=== PATIENT | male | born 1940 | race Two or more races ===

== ENCOUNTER 2022-06-25 22:55 | Emergency (ER) | payer OTHER ==
[~2022-06-25] VITALS: Ht 177.8 cm; Wt 95.3 kg
[2022-06-25 23:44] VITALS: BP 172/86
--- NOTE | 2022-06-25 23:55 | NUR ---
PT TAKEN TO BED 10
--- NOTE | 2022-06-26 | NUR ---
PT C/O INCREASED DIZZINESS X FEW DAYS, PT STATES HE IS DIZZY NORMALLY EVERYDAY SINCE HE HAD BRAIN SURGERY TO REMOVE A CLOT BUT THAT THE DIZZINESS IS DIFFERENT. PT NOTICES DIZZINESS WORSE WHEN HE CHANGES POSITIONS OR GETS UP FROM BED. DENIES ANY OTHER MEDICAL HISTORY AND DENIES TAKING ANY MEDS. 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
[2022-06-26 00:23] LABS: BASOPHILS # (AUTO) 0.1 K/uL (0.00-0.22); BASOPHILS % (AUTO) 1.2 % (0.0-2.0); EOSINOPHILS # (AUTO) 0.1 K/uL (0-0.4); EOSINOPHILS % (AUTO) 2.2 % (0.0-4.0); HEMATOCRIT 48.3 % (36-52); LYMPHOCYTES # (AUTO) 1.3 K/uL (2.0-11.5); LYMPHOCYTES % (AUTO) 23.6 % (20.5-51.1); MEAN CORPUSCULAR HEMOGLOBIN 30 pg (27-31); MEAN CORPUSCULAR HGB CONC 33 g/dL (33-37); MEAN CORPUSCULAR VOLUME 89.5 fL (80-94); MONOCYTES # (AUTO) 0.5 K/uL (0.8-1.0); MONOCYTES % (AUTO) 9.6 % (1.7-9.3); NEUTROPHILS # (AUTO) 3.4 K/uL (1.8-7.7); NEUTROPHILS % (AUTO) 63.4 % (42.2-75.2); PLATELET COUNT (AUTO) 191 K/uL (140-450); RED BLOOD CELL COUNT(AUTO) 5.39 MIL/uL (4.20-6.10); RED CELL DISTRIBUTION WIDTH 14.6 % (11.6-13.7); WHITE BLOOD COUNT (AUTO) 5.4 K/uL (4.8-10.8)
--- NOTE | 2022-06-26 00:27 | NUR ---
PT TAKEN TO CT
[2022-06-26 00:45] LABS: ALBUMIN 4.1 g/dL (3.4-5.0); ASPARTATE AMINOTRANSFERASE 22 U/L (15-37); CARBON DIOXIDE 28.3 mmol/L (21-32); CHLORIDE 104 mmol/L (98-107); CREATININE 1.1 mg/dL (0.6-1.3); GLUCOSE 88 mg/dL (74-106); POTASSIUM 4.3 mmol/L (3.5-5.1); SODIUM SERUM 141 mmol/L (136-145); TOTAL BILIRUBIN 0.4 mg/dL (0.0-1.0); UREA NITROGEN, BLOOD 31 mg/dL (7-18)
[2022-06-26] MEDS ORDERED: MECLIZINE 25 MG TAB PO ONE (00:50)
[2022-06-26] MEDS ORDERED: NACL 0.9% 1,000 ML IV ONE (01:40)
--- NOTE | 2022-06-26 02:56 | NUR ---
PT AMBULATED TO RESTROOM WITH UPRIGHT STEADY GAIT, DENIES DIZZINESS WITH POSITION CHANGE.
[2022-06-26 03:07] LABS: APPEARANCE,URINE CLEAR (CLEAR); BILIRUBIN,URINE NEGATIVE (NEGATIVE); BLOOD, URINE NEGATIVE (NEGATIVE); COLOR,URINE YELLOW (YELLOW); LEUKOCYTE ESTERASE ,URINE NEGATIVE (NEGATIVE); NITRITE, URINE NEGATIVE (NEGATIVE); UGLUCOSE NEGATIVE (NEGATIVE)
[2022-06-26] MEDS ORDERED: MECL-303 PO (03:41)
--- NOTE | 2022-06-26 03:54 | NUR ---
Patient discharged with v/s stable. Written and verbal after care instructions given and explained. Patient alert, oriented and verbalized understanding of instructions. Ambulatory with steady gait. All questions addressed prior to discharge. ID band removed. Patient advised to follow up with PMD. Rx SENT TO PHARMACY. Patient educated on indication of medication including possible reaction and side effects. Opportunity to ask questions provided and answered.
[2022-06-26 03:55] VITALS: BP 141/70
== END 2022-06-26 03:54 | disposition home or self-care (01) ==
LOC: MED 22:55
DX: R42 Dizziness and giddiness (principal)
CPT/HCPCS: 36415; 70450; 71045; 80053; 81003; 84484; 85025; 96360; 99284; J7030; J8597; Q0092; 93005

== ENCOUNTER 2023-10-04 10:18 | Emergency (ER) | payer BC, OTHER ==
[~2023-10-04] VITALS: Ht 170.2 cm; Wt 99.8 kg
[~2023-10-04 10:18] MED LIST: MECL-303 PO
[2023-10-04 10:26] VITALS: BP 161/92; PULSE 52; RESP 16; TEMP 98.2; O2SAT 96
[2023-10-04] MEDS ORDERED: MECL-303 PO (11:53)
[2023-10-04 12:16] VITALS: BP 161/92; PULSE 52; RESP 16; TEMP 98.2; O2SAT 96
== END 2023-10-04 12:16 | disposition home or self-care (01) ==
LOC: MED 10:18
DX: R42 Dizziness and giddiness (principal); Z79.899 Other long term (current) drug therapy
CPT/HCPCS: 81002; 93005; 99283